=== PATIENT | female | born 1950 | race Caucasian/White ===

== ENCOUNTER 2023-09-21 04:46 | Emergency (ER) | payer MEDICARE ==
[~2023-09-21] VITALS: Ht 149.9 cm; Wt 63.2 kg
[2023-09-21 04:47] VITALS: TEMP 97.3
[2023-09-21 06:07] LABS: BASO # 0.1 10^3/uL (0.0-0.2); EOS # 0.2 10^3/uL (0.0-0.5); EOS % 1.9 % (0.0-3.0); HEMATOCRIT 41.6 % (36.0-47.0); HEMOGLOBIN 13.7 g/dl (12.0-15.5); LYMPH # 1.6 10^3/uL (1.5-5.0); LYMPH % 16.5 % (24.0-44.0); MEAN CORPUSCULAR HEMOGLOBIN 31.3 pg (27.0-33.0); MEAN CORPUSCULAR HGB CONC 32.9 g/dl (32.0-36.5); MONO # 0.6 10^3/uL (0.0-0.8); MONO % 6.6 % (2.0-8.0); NEUTROPHILS % 73.7 % (36.0-66.0); PLATELET COUNT, AUTOMATED 258 10^3/uL (150-450); RED BLOOD COUNT 4.38 10^6/uL (4.00-5.40); WHITE BLOOD COUNT 9.5 10^3/uL (4.0-10.0)
[2023-09-21 06:22] LABS: PARTIAL THROMBOPLASTIN TIME 28.5 SECONDS (24.8-34.2); PROTHROMBIN TIME 12.9 SECONDS (12.5-14.5)
[2023-09-21 06:26] LABS: ETHYL ALCOHOL (ETHANOL) < 0.003 % (0.000-0.010)
[2023-09-21 06:33] LABS: BLOOD UREA NITROGEN 16 MG/DL (9-23); CALCIUM LEVEL 9.1 MG/DL (8.3-10.6); CARBON DIOXIDE LEVEL 28 MMOL/L (20-31); CHLORIDE LEVEL 102 MMOL/L (98-107); CK-MB VALUE MASS 1.6 NG/ML (<3.6); CPK CREATINE PHOSPHOKINASE 159 U/L (34-145); CREATININE FOR GFR 1.12 MG/DL (0.55-1.30); GLOMERULAR FILTRATION RATE 50.8 (>39); GLUCOSE, FASTING 103 MG/DL (74-106); POTASSIUM SERUM 4.8 MMOL/L (3.5-5.1); SODIUM LEVEL 138 MMOL/L (136-145); THYROID STIMULATING HORMONE 3.875 uIU/ML (0.55-4.78)
[2023-09-21] MEDS: ACETAMINOPHEN *IV* 1,000 MG in IV 1 EA IV ONE (06:33)
[2023-09-21 07:32] LABS: CK-MB VALUE MASS 1.6 NG/ML (<3.6)
[2023-09-21 07:36] LABS: MB/CK RELATIVE INDEX 1.44 (< OR =4)
[2023-09-21] MEDS ORDERED: FURO40TA2 PO (10:33)
[2023-09-21] MEDS ORDERED: ARIP1TAB6 PO (10:33)
[2023-09-21] MEDS ORDERED: DULO1CAP6 PO (10:33)
[2023-09-21] MEDS ORDERED: PANT40TA29 PO (10:33)
[2023-09-21] MEDS ORDERED: ROSU20TA61 PO (10:33)
[2023-09-21] MEDS ORDERED: POTA-150 PO (10:33)
[2023-09-21] MEDS ORDERED: FAMO40TA3 PO (10:33)
[2023-09-21] MEDS ORDERED: TOPI100T9 PO (10:33)
[2023-09-21] MEDS ORDERED: LEVO50TA5 PO (10:33)
[2023-09-21] MEDS ORDERED: HOME MED LIST COMPLETE! XX SCH (10:35)
[2023-09-21 11:00] VITALS: BP 110/71
[2023-09-21 11:15] VITALS: O2SAT 93
== END 2023-09-21 11:35 | disposition short-term general hospital (02) ==
LOC: M ED 04:46 → EDBD 04:46 → M ED 11:35
DX: S02.2XXA Fracture of nasal bones, initial encounter for closed fracture (principal); S02.82XA Fracture of other specified skull and facial bones, left side, initial encounter for closed fracture; W01.10XA Fall on same level from slipping, tripping and stumbling with subsequent striking against unspecified object, initial encounter; Y92.002 Bathroom of unspecified non-institutional (private) residence as the place of occurrence of the external cause; Y93.9 Activity, unspecified; Y99.9 Unspecified external cause status; R56.9 Unspecified convulsions; K21.9 Gastro-esophageal reflux disease without esophagitis; F31.9 Bipolar disorder, unspecified
CPT/HCPCS: 70450; 70486; 72125; 80048; 82077; 82550; 82553; 83605; 84443; 84484; 85025; 85610; 85730; 93005; 93041; 94760; 96365; 96366; 99285; J0131